=== PATIENT | female | born 2000 | race Caucasian/White ===

== ENCOUNTER 2022-04-18 11:47 | Emergency (ER) | payer SELFPAY ==
[2022-04-18 12:48] LABS: Urine Blood Trace-intact (Negative); Urine Glucose Negative (Negative); Urine Protein Negative (Negative); Urine Specific Gravity 1.015 (1.005-1.030)
[2022-04-18 12:54] LABS: Absolute Lymphocytes (CBC) 4.3 K/uL (0.7-4.9); Hematocrit 34.8 % (36.0-45.0); MCV 86.3 fL (80-100); MPV 7.2 fL (7.6-11.3); RBC Red Blood Cell Count 4.03 M/uL (3.86-4.86)
[2022-04-18 13:23] LABS: ALT/SGPT 14 U/L (13-56); AST/SGOT 11 U/L (15-37); Albumin 3.7 g/dL (3.4-5.0); Alkaline Phosphatase 59 U/L (45-117); BUN Blood Urea Nitrogen 9 mg/dL (7-18); Bicarbonate 28 mmol/L (21-32); Bilirubin Total 0.2 mg/dL (0.2-1.0); Glomerular Filtration Rate 128 ml/min (=/>90); Glucose Level 80 mg/dL (74-106); Lipase 51 U/L (13-75); Potassium 3.8 mmol/L (3.5-5.1); Protein, Total 6.7 g/dL (6.4-8.2); Sodium Level 139 mmol/L (136-145)
[2022-04-18 13:30] LABS: HCG, Quantitative < 1 mIU/mL (1-3)
[2022-04-18 13:50] LABS: Urine Specific Gravity/Preg 1.015 (1.005-1.030)
--- NOTE | 2022-04-18 14:43 | RAD REPORT ---
EXAM DESCRIPTION: CT - Abdomen Pelvis W Contrast - 04/18/2022 2:22 pm CLINICAL HISTORY: ABD PAIN Distention. Nausea and vomiting. COMPARISON: No comparisons TECHNIQUE: Thin cut axial CT imaging of the abdomen and pelvis was performed following intravenous a dministration of 100 mL Isovue 300. Multiplanar reformats were generated and reviewed. All CT scans are performed using dose optimization technique as appropriate and may include automated exposure control or mA/KV adjustment according to patient size. FINDINGS: No suspicious findings in the lung bases. The liver, spleen, and pancreas show no suspicious findings. Gallbladder is surgically removed. No ev idence of intra or extrahepatic biliary ductal dilation. Symmetric renal function is seen with no hydronephrosis or suspicious renal mass. No dilated bowel loops or bowel wall thickening. No free air, or inflammatory stranding. No hernia, m ass or bulky lymphadenopathy. Trace free pelvic situs, likely physiologic. The urinary bladder is wit hout significant finding. Well-circumscribed lobulated posterior left iliac crest 2.1 centimeter lesion with sclerotic margins and central lucency, nonspecific, and favored to be benign, possibly a bone cyst or small osteoblasto ma. No other suspicious bony findings. IMPRESSION: No acute intra-abdominal process. Incidental findings as above.
[2022-04-18 15:35] LABS: Urine Bacteria None Seen /HPF (<20)
--- NOTE | 2022-04-18 15:49 | EDPHYS ---
Physician Documentation [facility] Name: oLretta Mercedes Age: 21 yrs Sex: Female : 2000 Arrival Date: 04/18/2022 Time: 11:48 Bed 11 Private MD: ED Physician Mino De La Torre HPI: 04/18 12:16 This 21 yrs old Female presents to ER via Ambulatory with complaints of Abdominal sb4 Problem, Nausea. 12:16 The patient presents with abdominal pain in the lower abdomen. Onset: The sb4 symptoms/episode began/occurred last week. The symptoms do not radiate. Associated signs and symptoms: Pertinent positives: nausea and vomiting, Pertinent negatives: blood in stools, constipation, diarrhea, fever. Patient reports a month of several symptoms- diffuse lower abdominal pain, polyuria, nausea/vomiting, heartburn, abnormal food cravings. States she took 2 home tests, 1 was a faint positive and 1 was negative.. 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 - Social history:: Smoking status: unknown. ROS: 12:16 Constitutional: Negative for fever, chills, and weight loss, Eyes: Negative for injury, sb4 pain, redness, and discharge, ENT: Negative for injury, pain, and discharge, Cardiovascular: Negative for chest pain, palpitations, and edema, Respiratory: Negative for shortness of breath, cough, wheezing, and pleuritic chest pain, Back: Negative for injury and pain, MS/Extremity: Negative for injury and deformity, Skin: Negative for injury, rash, and discoloration. 12:16 Abdomen/GI: Positive for nausea and vomiting, abdominal cramps, Negative for diarrhea, constipation, hematemesis, black/tarry stool, rectal bleeding. 12:16 : Positive for urinary frequency, menstrual abnormality, Negative for small amounts, pelvic pain, flank pain, burning with urination, difficulty urinating, bladder incontinence. Exam: 12:16 Constitutional: This is a well developed, well nourished patient who is awake, alert, sb4 and in no acute distress. Head/Face: Normocephalic, atraumatic. Eyes: Extra-ocular motions intact. Periorbital areas with no swelling, redness, or edema. ENT: Mucous membranes moist. Cardiovascular: Regular rate and rhythm with a normal S1 and S2. Respiratory: Lungs have equal breath sounds bilaterally, clear to auscultation and percussion. No rales, rhonchi or wheezes noted. No increased work of breathing, no retractions or nasal flaring. Abdomen/GI: Soft, non-tender, no distension. Skin: Warm, dry with normal turgor. Normal color with no rashes, no lesions, and no evidence of cellulitis. MS/ Extremity: Pulses equal, no cyanosis. Neurovascular intact. Full, normal range of motion. Vital Signs: 12:05 BP 112 / 70; Pulse 73; Resp 18 S; Temp 99.1(TE); Pulse Ox 100% on R/A; Weight 53.98 kg aa5 (R); Height 5 ft. 1 in. (154.94 cm); 13:30 BP 99 / 63; Pulse 71; Resp 18; Pulse Ox 100% on R/A; eh3 14:30 BP 100 / 63; Pulse 69; Resp 16; Pulse Ox 100% on R/A; eh3 12:05 Body Mass Index 22.48 (53.98 kg, 154.94 cm) aa5 MDM: 12:04 Patient medically screened. sb4 12:16 Differential diagnosis: Dysmenorrhea, Ectopic , Endometriosis, sb4 gastroesophageal reflux disease, non-specific abd pain, Peptic Ulcer Disease, Pyelonephritis, urinary tract infection, . 15:59 Data reviewed: vital signs, nurses notes, lab test result(s), radiologic studies, I sb4 have discussed the patient's presentation/case with the attending Emergency Department Physician; and as a result, I will discharge patient. Historians other than the Patient: Friend: Friend. Counseling: I had a detailed discussion with the patient and/or guardian regarding: the historical points, exam findings, and any diagnostic results supporting the discharge/admit diagnosis, radiology results, the need for outpatient follow up, a orthopedic surgeon. 04/18 12:12 Order name: CBC with Diff; Complete Time: 13:19 sb4 04/18 12:12 Order name: CMP; Complete Time: 13:34 sb4 04/18 12:12 Order name: Lipase; Complete Time: 13:34 sb4 04/18 12:12 Order name: IV Saline Lock; Complete Time: 12:49 sb4 04/18 12:12 Order name: Labs collected and sent; Complete Time: 12:49 sb4 04/18 12:12 Order name: Urine Dipstick-Ancillary (obtain specimen); Complete Time: 12:49 sb4 04/18 12:12 Order name: Urine Test (obtain specimen); Complete Time: 12:49 sb4 04/18 12:12 Order name: Quantitative Hcg; Complete Time: 13:34 sb4 04/18 12:49 Order name: Urine Dipstick-Ancillary; Complete Time: 12:51 EDMS 04/18 13:36 Order name: CT Abd/Pelvis - IV Contrast Only; Complete Time: 14:45 sb4 04/18 13:37 Order name: Test Urine - POC; Complete Time: 13:51 bc6 04/18 13:41 Order name: Urine Microscopic Only; Complete Time: 15:48 sb4 04/18 15:43 Order name: Urine Culture EDMS Administered Medications: No medications were administered Disposition: 19:25 Co-signature as Attending Physician, Mino De La Torre MD I reviewed the patient's care rn provided by the Advanced Practice Provider and agree with the diagnosis and treatment plan. Disposition Summary: 04/18/22 15:49 Discharge Ordered Location: Home sb4 Problem: new sb4 Symptoms: have improved sb4 Condition: Stable sb4 Diagnosis - UTI/ Urinary tract infection, site not specified sb4 Followup: sb4 - With: - When: 10 - 14 days - Reason: Further diagnostic work-up Discharge Instructions: - Discharge Summary Sheet sb4 - Urinary Tract Infection, Adult, [id number] sb4 Forms: - Work release form sb4 - Medication Reconciliation Form sb4 - Thank You Letter sb4 - Antibiotic Education sb4 - Prescription Opioid Use sb4 Prescriptions: - Zofran 4 mg Oral Tablet - take 1 tablet by ORAL route every 12 hours As needed; 20 tablet; Refills: 0, sb4 Product Selection Permitted - Macrobid 100 mg Oral Capsule - take 1 capsule by ORAL route every 12 hours for 7 days; 14 capsule; Refills: 0, sb4 Product Selection Permitted Signatures: Dispatcher [employer] Mino Hirsch MD MD rn Lilliana Rodriguez, RN RN aa5 Loraine Herrera RN RN eh3 Lucila Reilly, ROMI LLANOS sb4
--- NOTE | 2022-04-18 15:49 | ER ---
Nurse's Notes [facility] Name: Loretta Mercedes Age: 21 yrs Sex: Female : 2000 Arrival Date: 04/18/2022 Time: 11:48 Bed 11 Private MD: Diagnosis: UTI/ Urinary tract infection, site not specified Presentation: 04/18 12:05 Chief complaint: Patient states: "for the last 2 weeks my stomach has been swollen and aa5 tight". Pt reports nausea and vomiting and urinary frequency. Coronavirus screen: At this time, the client does not indicate any symptoms associated with coronavirus-19. Ebola Screen: Patient denies travel to an Ebola-affected area in the 21 days before illness onset. Initial Sepsis Screen: Does the patient meet any 2 criteria? No. Patient's initial sepsis screen is negative. Does the patient have a suspected source of infection? No. Patient's initial sepsis screen is negative. Risk Assessment: Do you want to hurt yourself or someone else? Patient reports no desire to harm self or others. Onset of symptoms was March 2022. 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 - Social history:: Smoking status: unknown. Screenin:30 [facility] ED Fall Risk Assessment (Adult) Score/Fall Risk Level 0 - 2 = Low Risk. Abuse eh3 screen: Denies threats or abuse. Denies injuries from another. Nutritional screening: No deficits noted. Tuberculosis screening: No symptoms or risk factors identified. Assessment: 12:30 General: Appears in no apparent distress. uncomfortable, Behavior is cooperative, eh3 appropriate for age. Pain: Denies pain. Neuro: Level of Consciousness is awake, alert, obeys commands, Oriented to person, place, time, situation. Cardiovascular: Capillary refill < 3 seconds Patient's skin is warm and dry. Respiratory: Airway is patent Respiratory effort is even, unlabored, Respiratory pattern is regular, symmetrical. GI: Abdomen is round non-distended, Bowel sounds present X 4 quads. Abd is soft X 4 quads Abdomen is tender to palpation X 4 quads. Reports nausea, vomiting. :. : Reports urgency, urinary frequency. EENT: No signs and/or symptoms were reported regarding the EENT system. Derm: Skin is pink, warm \\T\\ dry. Musculoskeletal: Circulation, motion, and sensation intact. Range of motion: intact in all extremities. 13:30 Reassessment: Patient appears in no apparent distress at this time. Patient and/or eh3 family updated on plan of care and expected duration. Pain level reassessed. Patient is alert, oriented x 3, equal unlabored respirations, skin warm/dry/pink. 14:30 Reassessment: Patient appears in no apparent distress at this time. Patient and/or eh3 family updated on plan of care and expected duration. Pain level reassessed. Patient is alert, oriented x 3, equal unlabored respirations, skin warm/dry/pink. 15:30 Reassessment: Patient appears in no apparent distress at this time. Patient and/or eh3 family updated on plan of care and expected duration. Pain level reassessed. Patient is alert, oriented x 3, equal unlabored respirations, skin warm/dry/pink. Vital Signs: 12:05 BP 112 / 70; Pulse 73; Resp 18 S; Temp 99.1(TE); Pulse Ox 100% on R/A; Weight 53.98 kg aa5 (R); Height 5 ft. 1 in. (154.94 cm); 13:30 BP 99 / 63; Pulse 71; Resp 18; Pulse Ox 100% on R/A; eh3 14:30 BP 100 / 63; Pulse 69; Resp 16; Pulse Ox 100% on R/A; eh3 12:05 Body Mass Index 22.48 (53.98 kg, 154.94 cm) aa5 ED Course: 11:48 Patient arrived in ED. am2 11:48 Michelle Norris FNP-C is PHCP. kb 11:48 Mino De La Torre MD is Attending Physician. kb 11:48 PHCP role handed off by Michelle Norris FNP-C sb4 11:48 Lucila Reilly PA-C is PHCP. sb4 12:05 Arm band placed on. aa5 12:07 Triage completed. aa5 12:27 Loraine Herrera, RN is Primary Nurse. eh3 12:30 Patient has correct armband on for positive identification. Bed in low position. Call eh3 light in reach. Side rails up X2. Pulse ox on. NIBP on. Door closed. Noise minimized. 12:40 Inserted saline lock: 20 gauge in left antecubital area, using aseptic technique. Blood eh3 collected. 14:23 CT Abd/Pelvis - IV Contrast Only In Process Unspecified. EDMS 15:49 Ulysses Gonsales MD is Referral Physician. sb4 15:59 No provider procedures requiring assistance completed. IV discontinued, intact, eh3 bleeding controlled, No redness/swelling at site. Pressure dressing applied. Administered Medications: No medications were administered Medication: 15:59 VIS not applicable for this client. eh3 Outcome: 15:49 Discharge ordered by . sb4 15:59 Discharged to home ambulatory, with family. eh3 15:59 Condition: stable 15:59 Discharge instructions given to patient, Instructed on discharge instructions, follow up and referral plans. medication usage, Demonstrated understanding of instructions, follow-up care, medications, Prescriptions given X 1. 15:59 Patient left the ED. eh3 Signatures: Dispatcher [employer] EDIL Michelle Norris, REEL FILM INSPECTOR-C REEL FILM INSPECTOR-Lilliana Mar, RN RN [email or web address] Rafaela Rivero am2 Loraine Herrera, RN RN eh3 Lucila Reilly, PA-C PA-C sb4 Corrections: (The following items were deleted from the chart) 12:52 12:30 GI: Abdomen is round non-distended, Bowel sounds present X 4 quads. Abd is soft X eh3 4 quads eh3
[2022-04-18 16:32] VITALS: TEMP 99.1; O2SAT 100
[2022-04-18 16:35] VITALS: BP 100/63
== END 2022-04-18 15:59 | disposition home or self-care (01) ==
LOC: ER 11:47
DX: N39.0 Urinary tract infection, site not specified (principal)
CPT/HCPCS: 36415; 74177; 80053; 81003; 81015; 81025; 83690; 84702; 85025; 87086; 87088; 99284; Q9967